=== PATIENT | male | born 1965 | race Caucasian/White ===

== ENCOUNTER 2023-01-26 06:55 | Outpatient (CLI) | payer MEDICARE, OTHER | END 2023-01-26 06:56 | disposition critical access hospital (66) | LOC: EMS 06:55 | DX: M54.50 Low back pain, unspecified (principal) | CPT/HCPCS: A0425; A0427 ==

== ENCOUNTER 2023-03-27 14:28 | Emergency (ER) | payer MEDICARE, OTHER ==
[2023-03-27] MEDS ORDERED: HYDROmorphone 1 MG/ML CARPUJECT IM STA (17:13)
[2023-03-27] MEDS ORDERED: diazePAM INJ 5 MG/ML SYRINGE IM STA (17:13)
[2023-03-27] MEDS ORDERED: KETOROLAC 60 MG/2 ML VIAL IM STA (17:13)
--- NOTE | 2023-03-27 17:15 | ED Physician Documentation ---
PD HPI BACK PAIN - Stated complaint Stated Complaint: LOWER BACK PX - Chief complaint Chief Complaint: Back Pain - History obtained from History obtained from: Patient - Additional information Additional information: 57-year-old gentleman with chronic back pain has a flare of same. He has lumbar pain that is been worse over the last few days although has pain every day now. He denies weakness, numbness, tingling, saddle anesthesia, fevers. Since he was here 2 months ago he has seen Dr. Wu and a fusion is being considered. PD PAST MEDICAL HISTORY - Past Medical History Past Medical History: Yes Cardiovascular: None Endocrine/Autoimmune: None : Kidney stones Musculoskeletal: Chronic back pain - Past Surgical History Past Surgical History: Yes Ortho: Spine surgery - Present Medications Home Medications: Ambulatory Orders Medication Instructions Recorded Confirmed Cyclobenzaprine [Flexeril] 10 mg PO TID PRN #20 tablet 03/27/23 Meloxicam [Mobic] 7.5 mg PO BID 10 Days #20 tablet 03/27/23 Oxycodone HCl/Acetaminophen 1 each PO Q6H PRN #20 tablet 03/27/23 [Percocet 5-325 mg Tablet] dexAMETHasone [Decadron] 4 mg PO DAILY #5 tablet 03/27/23 - Allergies Allergies/Adverse Reactions: Allergies Allergy/AdvReac Type Severity Reaction Status Date / Time Penicillins Allergy Rash Verified 03/27/23 14:34 - Social History Does the pt smoke?: No Smoking Status: Never smoker Does the pt drink ETOH?: No Does the pt have substance abuse?: No - Immunizations Immunizations are current?: Yes PD ED PE NORMAL - Vitals Vital signs reviewed: Yes - General General: Alert and oriented X 3, Other (Comfortable at rest but winces with motion) - Back Back: No spinal TTP - Extremities Extremities: Other (The patient has equal and normal Achilles and patellar reflexes bilaterally. Normal sensation in all areas of the legs. Patient denies saddle anesthesia. Normal strength in flexion-extension at the ankles, knees, and flexion of the hips.) - Neuro Neuro: Alert and oriented X 3, Normal speech Results - Vitals Vitals: Vital Signs - 24 hr 03/27/23 14:34 Temperature 36.5 C Heart Rate 76 Respiratory 18 Rate Blood Pressure 160/66 H O2 Saturation 99 Oxygen O2 Source Room air PD Medical Decision Making - ED course ED course: This patient has seemingly uncomplicated musculoskeletal back pain. The patient has no "red flags." Specifically denies IV drug use, fevers, incontinence, saddle anesthesia. Spinal epidural abscess was considered, given that the patient has no fever, is not diabetic, has no spinal tenderness, does not use IV drugs, and has no bilateral neurologic symptoms, the diagnosis of spinal epidural abscess is considered exceedingly unlikely. Departure - Departure Disposition: 01 Home, Self Care Clinical Impression: Acute exacerbation of chronic low back pain Condition: Good Record reviewed to determine appropriate education?: Yes Instructions: ED Low Back Pain Injury Prescriptions: dexAMETHasone [Decadron] 4 mg PO DAILY #5 tablet Cyclobenzaprine [Flexeril] 10 mg PO TID PRN #20 tablet PRN Reason: Spasms Meloxicam [Mobic] 7.5 mg PO BID 10 Days #20 tablet Oxycodone HCl/Acetaminophen [Percocet 5-325 mg Tablet] 1 each PO Q6H PRN #20 tablet PRN Reason: pain Comments: I [facility] [place]. Follow-up with your primary care physician and your music specialist, next available appointments. Return if worse. I am prescribing a short course of narcotic pain medication for you. These are potentially dangerous and addictive medications that should be used carefully. These medications may constipate you. Take an uheb-uak-gwlygym stool softener (docusate) twice daily with plenty of water while taking these medications. If you go 24 hours without a bowel movement, take [id number] miralax, per package instructions. Do not drink or drive while taking these medications. If you received narcotic or sedating medications while in the emergency department, do not drive for 24 hours. Store this medication in a safe, secure place and out of reach of children. It is a violation of federal law to give or sell this medication to another person or to use in a manner other than prescribed. The ED will not refill narcotic prescriptions, including prescriptions lost or stolen. To dispose of unwanted medications: 1. [facility] Office provides a drop box for medication in pill fo rm only (no liquids) 8:00 am to 4:30 p.m. Thursday-Thursday in the lobby of the [facility], [address] Empty pills into ziplock bag before disposal. Call [phone] for information. 2.[email or web address] is a free service available to all [facility] residents. Go to [email or web address] Note that many narcotic pain relievers also contain Tylenol/acetaminophen. Please ensure that your total dose of acetaminophen from all sources does not exceed 3 g (3000 mg) per day.
[2023-03-27 18:22] VITALS: BP 140/60; O2SAT 100
== END 2023-03-27 18:15 | disposition home or self-care (01) ==
LOC: ED 14:28
DX: M54.50 Low back pain, unspecified (principal); G89.29 Other chronic pain
CPT/HCPCS: 96372; 99283; 99284; J1170

== ENCOUNTER 2023-08-17 11:18 | Emergency (ER) | payer MEDICARE, OTHER ==
--- NOTE | 2023-08-17 12:03 | ED Physician Documentation ---
History of Present Illness - Stated complaint Stated Complaint: HIGH HR - Chief complaint Chief Complaint: Cardiac - History obtained from History obtained from: Patient - History of Present Illness Timing: Today Pain level max: 0 Pain level now: 0 - Additonal information Additional information: Patient is a 57-year-old male who presents to the emergency department stating that he had palpitations this morning. He felt like his heart was beating harder and faster than usual. He states this has happened in the past with no cause found. Not having any pain. He states he did not sleep well last night. He was seen here last night for acute on chronic back pain. He states he did not take any of his medications this morning including his amlodipine. He has a known right bundle branch block. No fevers. No chills. No cough or congestion. He states that his Fitbit was reading between 100 and 128. No leg swelling. No immobilization. No dyspnea. No pleuritic chest pain. No calf swelling or tenderness. Review of Systems Constitutional: denies: Fever, Chills Respiratory: denies: Cough GI: denies: Nausea, Vomiting, Diarrhea Skin: denies: Rash Musculoskeletal: denies: Neck pain, Back pain Neurologic: denies: Headache PD PAST MEDICAL HISTORY - Past Medical History Cardiovascular: None Endocrine/Autoimmune: None : Kidney stones Musculoskeletal: Chronic back pain - Past Surgical History Past Surgical History: Yes Ortho: Spine surgery - Present Medications Home Medications: Ambulatory Orders Medication Instructions Recorded Confirmed Cyclobenzaprine [Flexeril] 10 mg PO TID PRN #20 tablet 03/27/23 08/17/23 Aspirin EC [Ecotrin] 81 mg PO DAILY 08/16/23 08/17/23 Esomeprazole Magnesium [Nexium 20 mg PO TID 08/16/23 08/17/23 24Hr] Lisinopril [Zestril] 20 mg PO DAILY 08/16/23 08/17/23 Meloxicam [Mobic] 7.5 mg PO BID 10 Days #20 tablet 08/16/23 08/17/23 Oxycodone HCl/Acetaminophen 1 - 2 each PO Q4HR PRN #14 tablet 08/16/23 08/17/23 [Percocet 5-325 mg Tablet] Trazodone HCl 100 mg PO QPM 08/16/23 08/17/23 hydroCHLOROthiazide [Hydrodiuril] 25 mg PO DAILY 08/16/23 08/17/23 methylPREDNISolone [Medrol] 4 mg PO DAILY #1 tab 08/16/23 08/17/23 Potassium Citrate [Potassium 10 meq PO DAILY 08/17/23 08/17/23 Citrate ER] amLODIPine [Norvasc] 5 mg PO DAILY 08/17/23 08/17/23 - Allergies Allergies/Adverse Reactions: Allergies Allergy/AdvReac Type Severity Reaction Status Date / Time Penicillins Allergy Rash Verified 08/17/23 11:40 - Social History Does the pt smoke?: No Smoking Status: Never smoker Does the pt drink ETOH?: Yes Does the pt have substance abuse?: No - Immunizations Immunizations are current?: Yes - POLST Patient has POLST: No PD ED PE NORMAL - Vitals Vital signs reviewed: Yes - General General: Alert and oriented X 3, No acute distress - HEENT HEENT: Moist mucous membranes - Neck Neck: Supple, no meningeal sign - Cardiac Cardiac: RRR (Slightly tachycardic), Strong equal pulses - Respiratory Respiratory: No respiratory distress, Clear bilaterally - Abdomen Abdomen: Soft, Non tender, Non distended - Derm Derm: Warm and dry - Extremities Extremities: No edema, No calf tenderness / cord - Neuro Neuro: Alert and oriented X 3 - Psych Psych: Normal mood, Normal affect Results - Vitals Vitals: Vital Signs - 24 hr 08/17/23 08/17/23 08/17/23 11:40 12:32 12:35 Temperature 36.5 C Heart Rate 117 H 100 Respiratory 20 20 Rate Blood Pressure 184/95 H 162/89 H Blood Pressure 162/89 H [Left] O2 Saturation 94 95 08/17/23 13:00 Temperature Heart Rate 91 Respiratory 18 Rate Blood Pressure 150/70 H Blood Pressure [Left] O2 Saturation 95 Oxygen O2 Source Room air - EKG (time done) 1140 EKG releavant findings:: EKG personally interpreted by author of this note. Relevant findings are: Rate: Rate (enter#) (110) Rhythm: Sinus tachycardia [place]: Anterior hemiblock (LAFB) Intervals: Normal MI, RBBB (incomplete) Ischemia: Other (no ischemic changes) - Labs Labs: Laboratory Tests 08/17/23 08/17/23 12:13 12:13 WBC 11.7 H RBC 4.71 Hgb 15.2 Hct 42.9 MCV 91.1 MCH 32.3 H MCHC 35.4 RDW 13.9 Plt Count 238 MPV 10.0 Neut # (Auto) 10.3 H Lymph # (Auto) 1.0 L Crisp # (Auto) 0.3 Eos # (Auto) 0.0 Baso # (Auto) 0.0 Absolute Nucleated RBC 0.00 Nucleated RBC % 0.0 Sodium 137 Potassium 3.8 Chloride 102 Carbon Dioxide 24 Anion Gap 11.0 BUN 15 Creatinine 1.1 Estimated GFR (MDRD) 69 L Glucose 246 H Calcium 9.6 Total Bilirubin 0.8 AST 61 H ALT 95 H Alkaline Phosphatase 71 Total Protein 7.6 Albumin 4.6 Globulin 3.0 Albumin/Globulin Ratio 1.5 Lipase 12 - Rads (name of study) cxr Relevant Findings:: Final report received, See rad report PD Medical Decision Making - ED course Complexity details: reviewed results, re-evaluated patient, considered differential, d/w patient ED course: Patient was given IV fluids and his sinus tachycardia resolved. Patient is well-appearing, nontoxic. Afebrile. No evidence of PE. His blood sugar is elevated at 246. He states that he is not a diabetic, this is a nonfasting glucose, recommend that he have this rechecked with his doctor. No chest pain. No indication for troponin at this time. Suspect that the hyperglycemia is currently dehydrated him. No syncope or near syncope. No focal neurological deficits. No calf tenderness or cord. No PE risk factors. No ACS. Patient is ambulating in the emergency department without assistance and without difficulty. Patient counseled regarding signs and symptoms for which I believe and urgent re-evaluation would be necessary. Patient with good understanding of and agreement to plan and is comfortable going home at this time This document was made in part using voice recognition software. While efforts are made to proofread this document, sound alike and grammatical errors may occur. Departure - Departure Disposition: 01 Home, Self Care Clinical Impression: Sinus tachycardia, Dehydration, Hyperglycemia Condition: Good Instructions: ED Dehydration, ED Hyperglycemia New Susp Diabetes Follow-Up: Your,doctor in 1 week [Other] Comments: Please follow-up with your doctor for further care. As we discussed your blood sugar was high today 246. You were given IV fluids and your heart rate has come down. Make sure you are drinking plenty of fluids at home. Limit your carbohydrate and sugar intake. Please follow-up with your doctor to have your hemoglobin A1c rechecked and to be evaluated for potential diabetes. Return if you worsen. Forms: PCP List Discharge Date/Time: 08/17/23 13:50
[2023-08-17 12:18] LABS: BASOPHILS % (AUTO) 0.1 %; HCT - HEMATOCRIT 42.9 % (42.0-52.0); HGB - HEMOGLOBIN 15.2 g/dL (14.0-18.0); LYMPHOCYTES % (AUTO) 8.8 %; MEAN CORPUSCULAR HEMOGLOBIN 32.3 pg (27.0-31.0); MEAN CORPUSCULAR HGB CONC 35.4 g/dL (32.0-36.0); MEAN CORPUSCULAR VOLUME 91.1 fL (80.0-94.0); MONOCYTES # (AUTO) 0.3 10^3/uL (0.0-1.0); MONOCYTES % (AUTO) 2.8 %; NEUTROPHILS # (AUTO) 10.3 10^3/uL (1.5-6.6); PLT - PLATELET COUNT 238 10^3/uL (130-450); RED BLOOD COUNT 4.71 10^6/uL (4.70-6.10); RED CELL DISTRIBUTION WIDTH 13.9 % (12.0-15.0); WHITE BLOOD COUNT 11.7 x10^3/uL (4.8-10.8)
[2023-08-17] MEDS: SODIUM CHLORIDE 0.9% 1,000 ML IV STA (12:19)
[2023-08-17 12:33] LABS: ALBUMIN 4.6 g/dL (3.2-5.5); ALBUMIN/GLOBULIN RATIO 1.5 (1.0-2.2); BILIRUBIN,TOTAL 0.8 mg/dL (0.2-1.0); CALCIUM 9.6 mg/dL (8.5-10.3); CREATININE 1.1 mg/dL (0.6-1.3); POTASSIUM 3.8 mmol/L (3.5-4.5); TOTAL PROTEIN 7.6 g/dL (6.4-8.9)
--- NOTE | 2023-08-17 12:49 | XRAY Report ---
PROCEDURE: Chest 1V INDICATIONS: Chest pain TECHNIQUE: One view of the chest was acquired. COMPARISON: None. FINDINGS: Surgical changes and devices: None. Lungs and pleura: No pleural effusions or pneumothorax. Lungs are clear. Mediastinum: Mediastinal contours appear normal. Heart size is normal. Bones and chest wall: No suspicious bony lesions. Overlying soft tissues appear unremarkable. IMPRESSION: No acute cardiopulmonary process. Reviewed by: Antione Evans MD on 08/17/2023 12:48 PM PDT Approved by: Antione Evans MD on 08/17/2023 12:48 PM PDT Station ID: [id number]
[2023-08-17 13:29] VITALS: BP 150/70; O2SAT 95
== END 2023-08-17 13:50 | disposition home or self-care (01) ==
LOC: ED 11:18
DX: R00.0 Tachycardia, unspecified (principal); E86.0 Dehydration; R73.9 Hyperglycemia, unspecified
CPT/HCPCS: 36415; 80053; 81001; 81003; 83690; 84484; 85025; 87086; 93005; 96360; 99283

== ENCOUNTER 2023-10-20 07:18 | Outpatient (CLI) | payer MEDICARE, OTHER ==
[2023-10-20] MEDS ORDERED: iohexoL-300 100 ML VIAL ONE (07:23)
[2023-10-20] MEDS ORDERED: DIATRIZOATE MEGLU/DIATRIZO SOD 30 ML BOTTLE PO ONE (07:23)
[2023-10-20] MEDS: iohexoL-300 100 ML VIAL IVP ONE (09:29)
[2023-10-20] MEDS: DIATRIZOATE MEGLU/DIATRIZO SOD 30 ML BOTTLE PO ONE (09:29)
--- NOTE | 2023-10-20 15:02 | CT Report ---
PROCEDURE: Abdomen/Pelvis W INDICATIONS: ABD PAIN CONTRAST: OMNI 300 100 ML TECHNIQUE: After the administration of intravenous contrast, a CT scan of the abdomen and pelvis was performed. Images were recorded and evaluated at appropriate window settings. Reformats: coronal and sagittal. F or radiation dose reduction, the following was used: automated exposure control, adjustment of mA and /or kV according to patient size. COMPARISON: None. FINDINGS: Image quality: Diagnostic. Lower chest: Unremarkable. Liver: No solid mass. Mild diffuse hepatic steatosis. Gallbladder: Surgically absent Biliary tree: No intrahepatic or extrahepatic dilation, accounting for age. Spleen: No splenomegaly. Pancreas: No pancreatic ductal dilation. Adrenals: No adrenal nodule. Kidneys and ureters: There is a very subtle tiny left ureterovesical junction stone measuring 1 mm wi th resultant mild hydroureter and minimal left hydronephrosis. Reference axial image 107 of series 2. Stomach, bowel and peritoneum: No gastric or small bowel dilation. No abnormal wall thickening. No pa thologic free fluid. Lymph nodes: No central or retroperitoneal adenopathy. Vessels: No infrarenal aortic aneurysm. Patent portal vein. PELVIS Reproductive organs: Mild prostatomegaly. Bladder: No abnormal wall thickening, accounting for underdistention. Pelvic lymph nodes: No pelvic adenopathy by size criteria. Bones: No aggressive osseous abnormality. Dorsal column stimulator. Other: Small fat-containing left inguinal hernia. IMPRESSION: 1. There is a very subtle 1 mm stone at the left ureterovesical junction resulting in mild left hydro ureter and minimal left hydronephrosis. 2. Mild diffuse hepatic steatosis. 3. Gallbladder is surgically absent. 4. Mild prostatomegaly. Reviewed by: Kayden Perez MD on 10/20/2023 3:01 PM PDT Approved by: Kayden Perez MD on 10/20/2023 3:01 PM PDT Station ID: [id number]
== END 2023-10-20 07:19 | disposition home or self-care (01) ==
LOC: DI 07:18
PROVIDERS: ATTEND Internal Medicine
DX: N13.2 Hydronephrosis with renal and ureteral calculous obstruction (principal); K76.0 Fatty (change of) liver, not elsewhere classified; N40.0 Benign prostatic hyperplasia without lower urinary tract symptoms; Z90.49 Acquired absence of other specified parts of digestive tract
CPT/HCPCS: 74177; Q9963; Q9967